=== PATIENT | female | born 1965 | race Caucasian/White ===

== ENCOUNTER 2016-12-28 05:27 | Day surgery (SDC) | payer BC ==
[2016-12-28] VITALS (7 sets, daily range): BP systolic 116–137; BP diastolic 60–77; PULSE 49–67; TEMP 98
[~2016-12-28] VITALS: Ht 172.7 cm; Wt 142.1 kg
[~2016-12-28 05:27] MED LIST: CLARITIN-D 10 M1 T24 PO; LIPITOR20 MG PO; PLAVIX 75MG TAB75 MG PO; TYLENOL ARTHRI650 M1 PO; ULTRAM 50MG TAB50 MG; ZESTRIL 10MG10 MG PO; ZYRTEC 10MG10 MG PO
[2016-12-28] MEDS ORDERED: FLONASE NASAL S16 GM NS (06:42)
[2016-12-28] MEDS ORDERED: NORCO 325 MG-7.1 TAB PO (09:24)
== END 2016-12-28 12:05 | disposition home or self-care (01) ==
LOC: SDCO 05:27
DX: S83.241A Other tear of medial meniscus, current injury, right knee, initial encounter (principal); M22.41 Chondromalacia patellae, right knee; I10 Essential (primary) hypertension; E78.00 Pure hypercholesterolemia, unspecified; X50.9XXA Other and unspecified overexertion or strenuous movements or postures, initial encounter
CPT/HCPCS: J0171; J1100; J1170; J1885; J2405; J2704; J3010; J7120

== ENCOUNTER 2018-04-16 13:24 | Emergency (ER) | payer OTHER, BC ==
[~2018-04-16] VITALS: Ht 170.2 cm; Wt 125.0 kg
[~2018-04-16 13:24] MED LIST changes: +FLONASE NASAL S16 GM NS; +NORCO 325 MG-7.1 TAB PO
[2018-04-16 13:26] VITALS: TEMP 98
[2018-04-16] MEDS ORDERED: NORCO 325 MG-51 TAB PO (15:07)
[2018-04-16 16:00] VITALS: BP 128/78; PULSE 54
== END 2018-04-16 16:02 | disposition home or self-care (01) ==
LOC: COL.ER 13:24
DX: S70.01XA Contusion of right hip, initial encounter (principal); S20.211A Contusion of right front wall of thorax, initial encounter; R40.2412 Glasgow coma scale score 13-15, at arrival to emergency department; I10 Essential (primary) hypertension; Z79.02 Long term (current) use of antithrombotics/antiplatelets; Z79.51 Long term (current) use of inhaled steroids; V49.40XA Driver injured in collision with unspecified motor vehicles in traffic accident, initial encounter; Y93.I9 Activity, other involving external motion
CPT/HCPCS: A9284

== ENCOUNTER 2020-10-04 11:29 | Outpatient (CLI) | payer BC ==
[~2020-10-04] VITALS: Ht 170.2 cm; Wt 145.4 kg
[~2020-10-04 11:29] MED LIST changes: +NORCO 325 MG-51 TAB PO
[2020-10-04] MEDS ORDERED: LYRICA 50MG CAP50 MG PO (11:59)
[2020-10-04] MEDS ORDERED: B-121000 MCG PO (11:59)
[2020-10-04 12:13] VITALS: BP 117/55; PULSE 73; TEMP 98.2
== END 2020-10-04 14:01 | disposition home or self-care (01) ==
LOC: EUO 11:29
DX: D50.9 Iron deficiency anemia, unspecified (principal)
CPT/HCPCS: J2916

== ENCOUNTER → 2021-02-28 | Outpatient (CLI) | payer BC ==
[~2021-02-28] MED LIST changes: +B-121000 MCG PO; +LYRICA 50MG CAP50 MG PO
== END ==
LOC: MC.RAD 07:45
DX: Z12.31 Encounter for screening mammogram for malignant neoplasm of breast (principal)